=== PATIENT | female | born 1935 | race Caucasian/White ===

== ENCOUNTER 2019-12-19 05:39 | Emergency (ER) | payer OTHER ==
--- NOTE | 2019-12-19 05:53 | PDOC ---
Attending Attestation - Resident Resident Name: Robin Tinoco - ED Attending Attestation I have performed the following: I have examined & evaluated the patient, The case was reviewed & discussed with the resident, I agree w/resident's findings & plan - HPI HPI: 12/19/19 06:23 Pt came in cardiac arrest En route she got CPR by EMS hooked IVF to the double lumen that she had already established. No other meds en route. - Physicial Exam PE: 12/19/19 06:24 Pt with dilated pupils from the EPi that was given here pale skin; warm to touch No HR; flatline CPR in progress pt was trached and vent dependent abd obese - Medical Decision Making 12/19/19 06:26 epi x 2 calcium and bicarb given code called as pt remained in flatline. Down for over 30 min 12/19/19 06:38 -time of called at 0544 -Shon Kasper (son) notified -Dr Khan called and notified; left message for report to be completed Discussed with ME: case # and will not be accepted Discharge - Discharge Information Problems reviewed: Yes Clinical Impression/Diagnosis: Cardiac arrest Condition: - Follow up/Referral Referrals: Nile Khan MD [Primary Care Provider] - - Patient Discharge Instructions - Post Discharge Activity
[2019-12-19 06:01] VITALS: BP 00/00; PULSE 0; BMI 38.9
--- NOTE | 2019-12-19 06:13 | PDOC ---
History of Present Illness - General Stated Complaint: CARDIAC ARREST Time Seen by Provider: 12/19/19 05:49 - History of Present Illness Initial Comments: 12/19/19 06:03 HPI: 84 y/o F with hx of obesity, CAMERON, anemia, DM, perotinitis s/p trach, PEG, double lumen PICC presenting from [facility] with cardiac arrest. She was noted to become increasingly SOB and hypoxic on the vent. FiO2 was increased from 40% to 100% with improvement in sats however, as patient was transferred to ambulance, patient became hypoxic and subsequently unresponsive. ACLS was initiated in the field and patient arrived to the ER as CPR was administered and been ongoing for 10minutes without administration of meds. Epi was administered on arrival and CPR continued. ROS: unable to obtain 2/2 mental status PE: GENERAL: unresponsive HEAD: atraumatic EYES: pupils fixed and unreactive NECK: trach in place with gastric contents pooling LUNGS: no spontaneous breath sounds, no chest rise HEART: asystolic, no pulses, no cardiac activity on US ABDOMEN: PEG tube in place, obese MUSCULOSKELETAL: no spontaneous movement NEUROLOGICAL: unresponsive, pupils fixed SKIN: pale, dry Past History - Past Medical History Allergies/Adverse Reactions: Allergies Allergy/AdvReac Type Severity Reaction Status Date / Time Penicillins Allergy Verified 12/19/19 06:03 - Psycho Social/Smoking Cessation Hx Smoking History: Unknown if ever smoked *Physical Exam - Vital Signs Last Vital Signs Temp Pulse Resp BP Pulse Ox 0 L 0 L 00/00 L 0 L 12/19/19 05:55 12/19/19 05:55 12/19/19 05:55 12/19/19 05:55 Medical Decision Making - Medical Decision Making 12/19/19 06:13 84 y/o F with hx of obesity, CAMERON, anemia, DM, perotinitis s/p trach, PEG, double lumen PICC presenting from [facility] with cardiac arrest. She was noted to become increasingly SOB and hypoxic on the vent. FiO2 was increased from 40% to 100% with improvement in sats however, as patient was transferred to ambulance, patient became hypoxic and subsequently unresponsive. ACLS was initiated in the field and patient arrived to the ER as CPR was administered and been ongoing for 10minutes without administration of meds. Epi was administered on arrival and CPR continued. -epi administered, bicarb administered, calcium administered; no pulses on pulse check, no cardiac activity on US, asystole on monitor; 3 rounds of epi administered -time of called at 0544 -Shon Kasper (son) notified -Dr Khan called and notified; left message for report to be completed 12/19/19 06:25 Discussed with ME: case # [id number] and will not be accepted Discharge - Discharge Information Problems reviewed: Yes Clinical Impression/Diagnosis: Cardiac arrest Condition: - Follow up/Referral Referrals: Nile Khan MD [Primary Care Provider] - - Patient Discharge Instructions - Post Discharge Activity
== END 2019-12-19 09:39 | disposition expired ==
LOC: JER 05:39
DX: I46.9 Cardiac arrest, cause unspecified (principal)
CPT/HCPCS: 92950; 99285-25